=== PATIENT | female | born 1935 | race Caucasian/White ===

== ENCOUNTER 2016-05-13 14:11 | Emergency (ER) | payer MEDICARE, OTHER ==
[~2016-05-13] VITALS: Ht 157.5 cm; Wt 66.8 kg
[~2016-05-13 14:11] MED LIST: ARICEPT23 MG PO; DITROPAN 5MG TAB5 MG PO; FLONASE NASAL S16 GM NS; K-DUR 10 MEQ T10 MEQ PO; LASIX 40MG TABL40 MG PO; MOTRIN 600600 MG/TAB PO; NAMENDA XR 28MG PO; PERCOCET 325 MG1 TA2 PO; PREDNISONE20 MG PO; PRILOSEC 20MG20 MG PO; PROTONIX 40MG T40 MG PO; RT ADVAIR 228 DISKUS IH; RT SPIRIVA18 MCG IH; SYNTHROID0.112 MG/T PO; TESSALON P100 MG/CAP PO; ULTRAM 50MG TAB50 MG PO; ZITHROMAX Z PA250 MG PO
[2016-05-13 14:13] VITALS: TEMP 98.4
[2016-05-13 15:11] LABS: BASO # 0.1 (0.0-0.2); BASO % 0.7 % (0.0-2.0); EOS # 0.1 (0.0-0.7); EOS % 1.8 % (0-4.0); GRAN # 4.6 (1.4-6.5); GRAN % 64.1 % (42.2-75.2); LYMPH # 1.5 (1.2-3.4); MEAN CELL VOLUME 93 fl (80.0-100.0); MEAN CORPUSCULAR HGB CONC 31 g/dl (33.0-37.0); MEAN PLATELET VOLUME 9.6 fl (7.4-10.4); MONO # 0.9 (0.1-0.6); MONO % 12.1 % (1.7-9.3); PLATELET COUNT 205 K/mm3 (130-400); RED BLOOD COUNT 3.95 M/mm3 (4.10-5.30); REDCELL DISTRIBUTION WIDTH-CV 14.8 % (11.5-14.5); WHITE BLOOD COUNT 7.2 K/mm3 (4.8-10.8)
[2016-05-13 15:15] LABS: HEMATOCRIT 36.9 % (37.0-47.0); HEMOGLOBIN 11.6 g/dl (12.5-16.0); MEAN CORPUSCULAR HEMOGLOBIN 29 pg (27.0-31.0)
[2016-05-13 15:24] LABS: ADJUSTED CALCIUM 10.3 mg/dL (8.4-10.2); ALBUMIN 3.8 gm/dL (3.5-5.0); BILIRUBIN,TOTAL 0.8 mg/dL (0.0-1.0); CALCIUM 10.1 mg/dL (8.4-10.2); CREATININE, serum 1.42 mg/dL (0.52-1.25); TOTAL PROTEIN 6.9 gm/dL (6.4-8.2)
[2016-05-13] MEDS ORDERED: MEDROL 4MG DOSPA4 MG PO (16:09)
[2016-05-13] MEDS ORDERED: LEVAQUIN 750MG750 M1 PO (16:09)
[2016-05-13 17:04] VITALS: BP 145/78; PULSE 81
== END 2016-05-13 16:40 | disposition home or self-care (01) ==
LOC: COL.ER 14:11
PROVIDERS: Emergency Medicine
DX: J44.0 Chronic obstructive pulmonary disease with (acute) lower respiratory infection (principal); J20.9 Acute bronchitis, unspecified; J44.1 Chronic obstructive pulmonary disease with (acute) exacerbation; R60.0 Localized edema
CPT/HCPCS: J7512

== ENCOUNTER 2016-05-22 08:30 | Outpatient (RCR) | payer MEDICARE, OTHER ==
[~2016-05-22 08:30] MED LIST changes: -ALBUTEROL0.83 MG/ML IH; -AMOXICILLIN 8751 TAB PO; -ASPIRIN 81M81 MG/TA2 PO; -COLACE 100100 MG/CAP PO; -CORDARONE200 MG/TAB PO; -DOXYCYCLINE 10100 MG PO; -FOLIC ACID 11 MG/TA1 PO; -GOOD SENSE400 MG/5 M PO; -INCRUSE EL62.5 MCG/A IH; -IPRATROPIUM BROM3 M1 IH; -IRON TABLETS325 MG PO; -KLONOPIN 0.5MG0.5 MG PO; -KLOR-CON 1010 MEQ PO; -LASIX 20MG TABL20 MG PO; -LEVAQUIN 7750 MG/151 IV; -MAALOX ADVANCE148 ML PO; -MERREM IV1 GM IV; -MERREM VIA500 MG/VIA IV; -MYSOLINE 5050 MG/TAB PO; -NORCO 325 MG-51 TAB PO; -NORCO2.5 PO; -PACERONE400 MG PO; -PULMICORT R1 MG/2 ML IH; -PULMICORT R1 MG/2 ML PO; -PULMICORT0.5 MG/2 M IH; -SEROQUEL 2525 MG/TAB PO; -SINEMET 25/101 UDTAB PO; -SYNTHROID0.137 MG PO; -TYLENOL 325MG325 MG PO; -VANCOMYCIN HYD750 MG IV; -WELLBUTRIN 75MG75 MG PO; -XARELTO10 MG PO; -XOPENEX 1.1.25 MG/3 IH
[2016-05-30] MEDS ORDERED: COLACE 100100 MG/CAP PO (13:23)
[2016-05-30] MEDS ORDERED: INCRUSE EL62.5 MCG/A IH (15:04)
[2016-05-30] MEDS ORDERED: PREDNISONE20 MG PO (15:16)
[2016-05-30] MEDS ORDERED: DOXYCYCLINE 10100 MG PO (15:16)
[2016-06-01] MEDS ORDERED: COLACE 100100 MG/CAP PO (01:44)
[2016-06-01] MEDS ORDERED: ARICEPT23 MG PO (01:45)
[2016-06-01] MEDS ORDERED: KLOR-CON 1010 MEQ PO (01:49)
[2016-06-01] MEDS ORDERED: LASIX 40MG TABL40 MG PO (01:50)
[2016-06-10] MEDS ORDERED: XOPENEX 1.1.25 MG/3 IH (11:50)
[2016-06-10] MEDS ORDERED: PACERONE400 MG PO (11:50)
[2016-06-10] MEDS ORDERED: TYLENOL 325MG325 MG PO (11:51)
[2016-06-10] MEDS ORDERED: NORCO 325 MG-51 TAB PO (11:51)
[2016-06-10] MEDS ORDERED: KLONOPIN 0.5MG0.5 MG PO (11:52)
[2016-06-10] MEDS ORDERED: SEROQUEL 2525 MG/TAB PO (11:52)
[2016-06-10] MEDS ORDERED: GOOD SENSE400 MG/5 M PO (11:53)
[2016-06-10] MEDS ORDERED: PREDNISONE20 MG PO (11:54)
[2016-06-10] MEDS ORDERED: XARELTO10 MG PO (12:36)
[2016-06-20] MEDS ORDERED: IPRATROPIUM BROM3 M1 IH ×2 (12:07)
[2016-06-20] MEDS ORDERED: CORDARONE200 MG/TAB PO (12:07)
[2016-06-20] MEDS ORDERED: MERREM IV1 GM IV (13:13)
[2016-06-20] MEDS ORDERED: VANCOMYCIN HYD750 MG IV (13:14)
[2016-06-20] MEDS ORDERED: LEVAQUIN 750MG750 M1 PO (13:15)
[2016-06-20] MEDS ORDERED: XARELTO10 MG PO (13:33)
[2016-06-29] MEDS ORDERED: XOPENEX 1.1.25 MG/3 IH (00:18)
[2016-06-29] MEDS ORDERED: NORCO 325 MG-51 TAB PO (00:21)
[2016-06-29] MEDS ORDERED: TYLENOL 325MG325 MG PO (00:23)
[2016-06-29] MEDS ORDERED: PULMICORT R1 MG/2 ML IH (00:25)
[2016-06-30] MEDS ORDERED: AMOXICILLIN 8751 TAB PO (12:17)
[2016-06-30] MEDS ORDERED: MERREM VIA500 MG/VIA IV (12:19)
[2016-06-30] MEDS ORDERED: LEVAQUIN 7750 MG/151 IV (12:21)
[2016-08-17] MEDS ORDERED: PULMICORT R1 MG/2 ML PO (11:03)
[2016-08-17] MEDS ORDERED: WELLBUTRIN 75MG75 MG PO (11:04)
[2016-08-17] MEDS ORDERED: LASIX 20MG TABL20 MG PO (11:04)
[2016-08-17] MEDS ORDERED: SEROQUEL 2525 MG/TAB PO (11:10)
[2016-08-17] MEDS ORDERED: PULMICORT R1 MG/2 ML IH (12:17)
== END 2016-08-19 | disposition home or self-care (01) ==
LOC: WSST
DX: R13.10 Dysphagia, unspecified (principal); G30.9 Alzheimer's disease, unspecified; F02.80 Dementia in other diseases classified elsewhere, unspecified severity, without behavioral disturbance, psychotic disturbance, mood disturbance, and anxiety
CPT/HCPCS: G8996-GN; G8997-GN; G8998-GN

== ENCOUNTER → 2016-05-22 | Outpatient (CLI) | payer MEDICARE, OTHER ==
[~2016-05-22] MED LIST changes: +ALBUTEROL0.83 MG/ML IH; +AMOXICILLIN 8751 TAB PO; +ASPIRIN 81M81 MG/TA2 PO; +COLACE 100100 MG/CAP PO; +CORDARONE200 MG/TAB PO; +DOXYCYCLINE 10100 MG PO; +FOLIC ACID 11 MG/TA1 PO; +GOOD SENSE400 MG/5 M PO; +INCRUSE EL62.5 MCG/A IH; +IPRATROPIUM BROM3 M1 IH; +IRON TABLETS325 MG PO; +KLONOPIN 0.5MG0.5 MG PO; +KLOR-CON 1010 MEQ PO; +LASIX 20MG TABL20 MG PO; +LEVAQUIN 750MG750 M1 PO; +LEVAQUIN 7750 MG/151 IV; +MAALOX ADVANCE148 ML PO; +MEDROL 4MG DOSPA4 MG PO; +MERREM IV1 GM IV; +MERREM VIA500 MG/VIA IV; +MYSOLINE 5050 MG/TAB PO; +NORCO 325 MG-51 TAB PO; +NORCO2.5 PO; +PACERONE400 MG PO; +PULMICORT R1 MG/2 ML IH; +PULMICORT R1 MG/2 ML PO; +PULMICORT0.5 MG/2 M IH; +SEROQUEL 2525 MG/TAB PO; +SINEMET 25/101 UDTAB PO; +SYNTHROID0.137 MG PO; +TYLENOL 325MG325 MG PO; +VANCOMYCIN HYD750 MG IV; +WELLBUTRIN 75MG75 MG PO; +XARELTO10 MG PO; +XOPENEX 1.1.25 MG/3 IH
== END ==
LOC: COL.RAD 08:08
DX: R13.19 Other dysphagia (principal); G30.8 Other Alzheimer's disease; F02.80 Dementia in other diseases classified elsewhere, unspecified severity, without behavioral disturbance, psychotic disturbance, mood disturbance, and anxiety
CPT/HCPCS: G8996-GN; G8997-GN; G8998-GN

== ENCOUNTER → 2016-05-29 | Outpatient (CLI) | payer MEDICARE, OTHER ==
[~2016-05-29] MED LIST changes: +ALBUTEROL0.83 MG/ML IH; +AMOXICILLIN 8751 TAB PO; +ASPIRIN 81M81 MG/TA2 PO; +COLACE 100100 MG/CAP PO; +CORDARONE200 MG/TAB PO; +DOXYCYCLINE 10100 MG PO; +FOLIC ACID 11 MG/TA1 PO; +GOOD SENSE400 MG/5 M PO; +INCRUSE EL62.5 MCG/A IH; +IPRATROPIUM BROM3 M1 IH; +IRON TABLETS325 MG PO; +KLONOPIN 0.5MG0.5 MG PO; +KLOR-CON 1010 MEQ PO; +LASIX 20MG TABL20 MG PO; +LEVAQUIN 7750 MG/151 IV; +MAALOX ADVANCE148 ML PO; +MERREM IV1 GM IV; +MERREM VIA500 MG/VIA IV; +MYSOLINE 5050 MG/TAB PO; +NORCO 325 MG-51 TAB PO; +NORCO2.5 PO; +PACERONE400 MG PO; +PULMICORT R1 MG/2 ML IH; +PULMICORT R1 MG/2 ML PO; +PULMICORT0.5 MG/2 M IH; +SEROQUEL 2525 MG/TAB PO; +SINEMET 25/101 UDTAB PO; +SYNTHROID0.137 MG PO; +TYLENOL 325MG325 MG PO; +VANCOMYCIN HYD750 MG IV; +WELLBUTRIN 75MG75 MG PO; +XARELTO10 MG PO; +XOPENEX 1.1.25 MG/3 IH
== END ==
LOC: COL.RAD 07:43
DX: N17.9 Acute kidney failure, unspecified (principal)

== ENCOUNTER 2016-05-30 12:25 | Emergency (ER) | payer MEDICARE, OTHER ==
[~2016-05-30] VITALS: Ht 157.5 cm; Wt 63.2 kg
[~2016-05-30 12:25] MED LIST changes: -ALBUTEROL0.83 MG/ML IH; -AMOXICILLIN 8751 TAB PO; -ASPIRIN 81M81 MG/TA2 PO; -COLACE 100100 MG/CAP PO; -CORDARONE200 MG/TAB PO; -DOXYCYCLINE 10100 MG PO; -FOLIC ACID 11 MG/TA1 PO; -GOOD SENSE400 MG/5 M PO; -INCRUSE EL62.5 MCG/A IH; -IPRATROPIUM BROM3 M1 IH; -IRON TABLETS325 MG PO; -KLONOPIN 0.5MG0.5 MG PO; -KLOR-CON 1010 MEQ PO; -LASIX 20MG TABL20 MG PO; -LEVAQUIN 7750 MG/151 IV; -MAALOX ADVANCE148 ML PO; -MERREM IV1 GM IV; -MERREM VIA500 MG/VIA IV; -MYSOLINE 5050 MG/TAB PO; -NORCO 325 MG-51 TAB PO; -NORCO2.5 PO; -PACERONE400 MG PO; -PULMICORT R1 MG/2 ML IH; -PULMICORT R1 MG/2 ML PO; -PULMICORT0.5 MG/2 M IH; -SEROQUEL 2525 MG/TAB PO; -SINEMET 25/101 UDTAB PO; -SYNTHROID0.137 MG PO; -TYLENOL 325MG325 MG PO; -VANCOMYCIN HYD750 MG IV; -WELLBUTRIN 75MG75 MG PO; -XARELTO10 MG PO; -XOPENEX 1.1.25 MG/3 IH
[2016-05-30] MEDS ORDERED: COLACE 100100 MG/CAP PO (13:23)
[2016-05-30 13:34] LABS: BASO % 0.4 % (0.0-2.0); EOS # 0.1 (0.0-0.7); EOS % 0.9 % (0-4.0); GRAN # 6.9 (1.4-6.5); GRAN % 71.9 % (42.2-75.2); HEMATOCRIT 40.8 % (37.0-47.0); HEMOGLOBIN 12.6 g/dl (12.5-16.0); LYMPH # 1.5 (1.2-3.4); LYMPH % 15.6 % (20.0-51.0); MEAN CELL VOLUME 93 fl (80.0-100.0); MEAN CORPUSCULAR HEMOGLOBIN 29 pg (27.0-31.0); MEAN CORPUSCULAR HGB CONC 31 g/dl (33.0-37.0); MEAN PLATELET VOLUME 9.5 fl (7.4-10.4); MONO % 10.6 % (1.7-9.3); PLATELET COUNT 229 K/mm3 (130-400); RED BLOOD COUNT 4.37 M/mm3 (4.10-5.30); REDCELL DISTRIBUTION WIDTH-CV 14.7 % (11.5-14.5); WHITE BLOOD COUNT 9.6 K/mm3 (4.8-10.8)
[2016-05-30 13:46] LABS: HYALINE CAST >12 /lpf; PH 6 (5-8); SQUAMOUS EPITHELIAL 0-2 /hpf; URINE APPEARANCE Clear; URINE BACTERIA None Seen /hpf; URINE BILIRUBIN Negative (NEGATIVE); URINE BLOOD Negative (NEGATIVE); URINE COLOR Yellow; URINE GLUCOSE Negative (NEGATIVE); URINE KETONE Negative (NEGATIVE); URINE RBC 0-2 /hpf; URINE UROBILINOGEN Negative (NEGATIVE); URINE WBC 0-2 /hpf
[2016-05-30 14:13] LABS: ADJUSTED CALCIUM 10.3 mg/dL (8.4-10.2); ALBUMIN 3.6 gm/dL (3.5-5.0); BILIRUBIN,TOTAL 0.7 mg/dL (0.0-1.0); CREATININE, serum 1.47 mg/dL (0.52-1.25); POTASSIUM 3.9 mmol/L (3.4-5.0); TOTAL PROTEIN 6.8 gm/dL (6.4-8.2)
[2016-05-30 14:24] LABS: TROPONIN-I 0.013 ng/mL (0.000-0.034)
[2016-05-30] MEDS ORDERED: INCRUSE EL62.5 MCG/A IH (15:04)
[2016-05-30] MEDS ORDERED: PREDNISONE20 MG PO (15:16)
[2016-05-30] MEDS ORDERED: DOXYCYCLINE 10100 MG PO (15:16)
[2016-05-30 15:50] VITALS: BP 107/61; PULSE 78; TEMP 98.2
== END 2016-05-30 15:50 ==
LOC: COL.ER 12:25
PROVIDERS: Emergency Medicine
DX: J44.0 Chronic obstructive pulmonary disease with (acute) lower respiratory infection (principal); J20.9 Acute bronchitis, unspecified; J44.1 Chronic obstructive pulmonary disease with (acute) exacerbation; I50.9 Heart failure, unspecified; F03.90 Unspecified dementia, unspecified severity, without behavioral disturbance, psychotic disturbance, mood disturbance, and anxiety; Z99.81 Dependence on supplemental oxygen
CPT/HCPCS: J7030; J7512

== ENCOUNTER 2016-06-01 01:26 | Inpatient (IN) | payer MEDICARE, OTHER ==
[~2016-06-01] VITALS: Ht 157.5 cm; Wt 71.0 kg
[~2016-06-01 01:26] MED LIST changes: +COLACE 100100 MG/CAP PO; +DOXYCYCLINE 10100 MG PO; +INCRUSE EL62.5 MCG/A IH
[2016-06-01] MEDS ORDERED: COLACE 100100 MG/CAP PO (01:44)
[2016-06-01] MEDS ORDERED: ARICEPT23 MG PO (01:45)
[2016-06-01] MEDS ORDERED: KLOR-CON 1010 MEQ PO (01:49)
[2016-06-01] MEDS ORDERED: LASIX 40MG TABL40 MG PO (01:50)
[2016-06-01 02:42] LABS: BASO % 0.1 % (0.0-2.0); GRAN # 10.4 (1.4-6.5); GRAN % 86.8 % (42.2-75.2); LYMPH # 0.8 (1.2-3.4); LYMPH % 6.3 % (20.0-51.0); MEAN CELL VOLUME 92 fl (80.0-100.0); MEAN CORPUSCULAR HGB CONC 32 g/dl (33.0-37.0); MEAN PLATELET VOLUME 9.8 fl (7.4-10.4); MONO # 0.7 (0.1-0.6); PLATELET COUNT 234 K/mm3 (130-400); REDCELL DISTRIBUTION WIDTH-CV 14.6 % (11.5-14.5); WHITE BLOOD COUNT 11.9 K/mm3 (4.8-10.8)
[2016-06-01 02:45] LABS: HEMATOCRIT 34.9 % (37.0-47.0); HEMOGLOBIN 11.1 g/dl (12.5-16.0); MEAN CORPUSCULAR HEMOGLOBIN 29 pg (27.0-31.0)
[2016-06-01 02:50] LABS: ADJUSTED CALCIUM 10.3 mg/dL (8.4-10.2); ALBUMIN 3.3 gm/dL (3.5-5.0); BILIRUBIN,TOTAL 0.6 mg/dL (0.0-1.0); CALCIUM 9.7 mg/dL (8.4-10.2); CREATININE, serum 1.31 mg/dL (0.52-1.25); POTASSIUM 4.1 mmol/L (3.4-5.0); TOTAL PROTEIN 6.1 gm/dL (6.4-8.2)
[2016-06-01 02:51] LABS: INR 1.1 (0.8-3.0); PROTHROMBIN TIME 11.7 SECONDS (9.7-12.8)
[2016-06-01 02:54] LABS: PARTIAL THROMBOPLASTIN TIME 27.2 SECONDS (26.0-37.0)
[2016-06-01 02:56] LABS: PH 6 (5-8); SQUAMOUS EPITHELIAL None Seen /hpf; URINE APPEARANCE Clear; URINE BACTERIA None Seen /hpf; URINE BILIRUBIN Negative (NEGATIVE); URINE BLOOD Negative (NEGATIVE); URINE COLOR Straw; URINE GLUCOSE Negative (NEGATIVE); URINE KETONE Negative (NEGATIVE); URINE RBC None Seen /hpf; URINE UROBILINOGEN Negative (NEGATIVE); URINE WBC None Seen /hpf
[2016-06-01 04:49] VITALS: BP 102/62; PULSE 77; TEMP 97.6
[2016-06-01 10:14] VITALS: BP 94/50; PULSE 72; TEMP 97.6
[2016-06-01 13:39] VITALS: BP 104/57; PULSE 85; TEMP 98.1
[2016-06-01 14:09] LABS: ALLEN TEST YES; ALLENS TEST RESULT PASS; ARTERIAL BLD GAS O2 SATURATION 91.5 % (92-100); ARTERIAL BLD GAS TCO2 CT 33.8; ARTERIAL BLOOD GAS BASE EXCESS 5.1 (-2-2); ARTERIAL BLOOD GAS PHT 7.35 C (7.35-7.45); ARTERIAL BLOOD GAS PO2 65.1 mmHg (80-100); ARTERIAL BLOOD GAS PO2T 65.1 (80-100); ARTERIAL BLOOD GAS pH 7.35 (7.35-7.45); ATS? YES; OXYHEMOGLOBIN 90.8 %
[2016-06-01 18:23] VITALS: BP 115/55; PULSE 97; TEMP 98.6
[2016-06-01 21:26] VITALS: BP 113/69; PULSE 78; TEMP 97.8
[2016-06-02] VITALS (388 sets, daily range): BP systolic 95–119; BP diastolic 52–63; PULSE 68–140; TEMP 97.8–99; O2SAT 84–100
[2016-06-02 17:37] LABS: TROPONIN-I 0.03 ng/mL (0.000-0.034)
[2016-06-02 17:56] LABS: THYROID STIMULATING HORMONE 2.5 uIU/mL (0.465-4.680)
[2016-06-03] VITALS (1396 sets, daily range): BP systolic 83–139; BP diastolic 52–80; PULSE 94–111; TEMP 97.8–99.3; O2SAT 77–100
[2016-06-03 04:32] LABS: ARTERIAL BLD GAS O2 SATURATION 97.8 % (92-100); ARTERIAL BLD GAS TCO2 CT 27.8; ARTERIAL BLOOD GAS BASE EXCESS 2.3 (-2-2); ARTERIAL BLOOD GAS HCO3 26.5 meq/L (22-26); ARTERIAL BLOOD GAS PHT 7.44 C (7.35-7.45); ARTERIAL BLOOD GAS PO2 110.9 mmHg (80-100); ARTERIAL BLOOD GAS PO2T 110.9 (80-100); ARTERIAL BLOOD GAS pH 7.44 (7.35-7.45); OXYHEMOGLOBIN 96.7 %
[2016-06-03 04:33] LABS: ALLEN TEST YES; ALLENS TEST RESULT PASS; ATS? YES
[2016-06-03 06:11] LABS: MEAN CELL VOLUME 95 fl (80.0-100.0); MEAN CORPUSCULAR HGB CONC 31 g/dl (33.0-37.0); PLATELET COUNT 138 K/mm3 (130-400); RED BLOOD COUNT 2.82 M/mm3 (4.10-5.30); REDCELL DISTRIBUTION WIDTH-CV 14.6 % (11.5-14.5)
[2016-06-03 06:17] LABS: ADD PATHOLOGY DIFF REVIEW NO; HEMATOCRIT 26.8 % (37.0-47.0); HEMOGLOBIN 8.3 g/dl (12.5-16.0); MEAN CORPUSCULAR HEMOGLOBIN 29 pg (27.0-31.0)
[2016-06-03 06:27] LABS: CALCIUM 8.2 mg/dL (8.4-10.2); CREATININE, serum 1.26 mg/dL (0.52-1.25); POTASSIUM 3.3 mmol/L (3.4-5.0)
[2016-06-03 06:34] LABS: BAND 58 % (0-10); NEUTROPHILS 21 % (42.0-75.2); TOTAL CELLS COUNTED 100
[2016-06-03 17:11] LABS: MAGNESIUM 1.8 mg/dL (1.6-2.3); PHOSPHOROUS 3.3 mg/dL (2.5-4.5)
[2016-06-04] VITALS (998 sets, daily range): BP systolic 82–126; BP diastolic 53–74; PULSE 72–93; TEMP 97–98.8; O2SAT 76–100
[2016-06-04 05:49] LABS: MEAN CELL VOLUME 95 fl (80.0-100.0); MEAN CORPUSCULAR HGB CONC 31 g/dl (33.0-37.0); MEAN PLATELET VOLUME 10.5 fl (7.4-10.4); PLATELET COUNT 133 K/mm3 (130-400); RED BLOOD COUNT 2.84 M/mm3 (4.10-5.30); REDCELL DISTRIBUTION WIDTH-CV 14.5 % (11.5-14.5); WHITE BLOOD COUNT 5.3 K/mm3 (4.8-10.8)
[2016-06-04 05:53] LABS: HEMATOCRIT 27.1 % (37.0-47.0); HEMOGLOBIN 8.3 g/dl (12.5-16.0); MEAN CORPUSCULAR HEMOGLOBIN 29 pg (27.0-31.0)
[2016-06-04 05:54] LABS: ADD PATHOLOGY DIFF REVIEW NO
[2016-06-04 05:59] LABS: ALBUMIN 2.5 gm/dL (3.5-5.0); BILIRUBIN,TOTAL 0.4 mg/dL (0.0-1.0); CALCIUM 8.8 mg/dL (8.4-10.2); CREATININE, serum 1.16 mg/dL (0.52-1.25); MAGNESIUM 1.9 mg/dL (1.6-2.3); PHOSPHOROUS 3.4 mg/dL (2.5-4.5); POTASSIUM 4.1 mmol/L (3.4-5.0); TOTAL PROTEIN 5.1 gm/dL (6.4-8.2)
[2016-06-04 06:19] LABS: BAND 26 % (0-10); NEUTROPHILS 64 % (42.0-75.2); PLATELET ESTIMATE NORMAL (NORMAL); TOTAL CELLS COUNTED 100
[2016-06-05] VITALS (454 sets, daily range): BP systolic 104–129; BP diastolic 61–80; PULSE 67–85; TEMP 98–99.1; O2SAT 90–100
[2016-06-05 06:52] LABS: CALCIUM 9.3 mg/dL (8.4-10.2); CREATININE, serum 1.03 mg/dL (0.52-1.25); MAGNESIUM 2.4 mg/dL (1.6-2.3); PHOSPHOROUS 3.6 mg/dL (2.5-4.5); POTASSIUM 3.9 mmol/L (3.4-5.0)
[2016-06-06] VITALS (804 sets, daily range): BP systolic 88–132; BP diastolic 57–94; PULSE 80–99; TEMP 97–98.2; O2SAT 79–100
[2016-06-06 04:46] LABS: ARTERIAL BLD GAS O2 SATURATION 97.7 % (92-100); ARTERIAL BLD GAS TCO2 CT 28.5; ARTERIAL BLOOD GAS BASE EXCESS 1.4 (-2-2); ARTERIAL BLOOD GAS HCO3 27.1 meq/L (22-26); ARTERIAL BLOOD GAS PHT 7.37 C (7.35-7.45); ARTERIAL BLOOD GAS PO2 116.5 mmHg (80-100); ARTERIAL BLOOD GAS PO2T 116.5 (80-100); ARTERIAL BLOOD GAS pH 7.37 (7.35-7.45); OXYHEMOGLOBIN 97.1 %
[2016-06-06 04:47] LABS: ALLEN TEST NO; ATS? YES
[2016-06-06 07:37] LABS: CALCIUM 9.4 mg/dL (8.4-10.2); CREATININE, serum 1.03 mg/dL (0.52-1.25); MAGNESIUM 2.2 mg/dL (1.6-2.3); MEAN CELL VOLUME 91 fl (80.0-100.0); MEAN CORPUSCULAR HGB CONC 32 g/dl (33.0-37.0); PHOSPHOROUS 3.3 mg/dL (2.5-4.5); PLATELET COUNT 212 K/mm3 (130-400); POTASSIUM 3.8 mmol/L (3.4-5.0); RED BLOOD COUNT 3.13 M/mm3 (4.10-5.30); REDCELL DISTRIBUTION WIDTH-CV 14.3 % (11.5-14.5); WHITE BLOOD COUNT 9.9 K/mm3 (4.8-10.8)
[2016-06-06 07:40] LABS: HEMATOCRIT 28.5 % (37.0-47.0); HEMOGLOBIN 9.2 g/dl (12.5-16.0); MEAN CORPUSCULAR HEMOGLOBIN 29 pg (27.0-31.0)
[2016-06-06 07:41] LABS: ADD PATHOLOGY DIFF REVIEW NO
[2016-06-06 08:05] LABS: BAND 7 % (0-10); NEUTROPHILS 87 % (42.0-75.2); PLATELET ESTIMATE NORMAL (NORMAL); TOTAL CELLS COUNTED 100
[2016-06-07] VITALS (440 sets, daily range): BP systolic 85–129; BP diastolic 58–82; PULSE 90–93; TEMP 97–98.6; O2SAT 84–100
[2016-06-07 05:56] LABS: MEAN CELL VOLUME 92 fl (80.0-100.0); MEAN CORPUSCULAR HGB CONC 32 g/dl (33.0-37.0); MEAN PLATELET VOLUME 10.4 fl (7.4-10.4); PLATELET COUNT 183 K/mm3 (130-400); RED BLOOD COUNT 2.58 M/mm3 (4.10-5.30); REDCELL DISTRIBUTION WIDTH-CV 14.5 % (11.5-14.5); WHITE BLOOD COUNT 11.2 K/mm3 (4.8-10.8)
[2016-06-07 06:02] LABS: ADD PATHOLOGY DIFF REVIEW NO; HEMATOCRIT 23.6 % (37.0-47.0); HEMOGLOBIN 7.5 g/dl (12.5-16.0); MEAN CORPUSCULAR HEMOGLOBIN 29 pg (27.0-31.0)
[2016-06-07 06:08] LABS: CALCIUM 9.2 mg/dL (8.4-10.2); CREATININE, serum 1.11 mg/dL (0.52-1.25); PHOSPHOROUS 2.9 mg/dL (2.5-4.5); POTASSIUM 3.7 mmol/L (3.4-5.0)
[2016-06-07 06:24] LABS: BAND 18 % (0-10); METAMYELOCYTE 3 % (0-0); NEUTROPHILS 72 % (42.0-75.2); TOTAL CELLS COUNTED 100
[2016-06-08] VITALS (14 sets, daily range): BP systolic 96–142; BP diastolic 51–91; PULSE 66–105; TEMP 97.4–98.5
[2016-06-08 06:15] LABS: MEAN CELL VOLUME 93 fl (80.0-100.0); MEAN CORPUSCULAR HGB CONC 31 g/dl (33.0-37.0); MEAN PLATELET VOLUME 10.7 fl (7.4-10.4); PLATELET COUNT 173 K/mm3 (130-400); RED BLOOD COUNT 2.23 M/mm3 (4.10-5.30); REDCELL DISTRIBUTION WIDTH-CV 14.8 % (11.5-14.5); WHITE BLOOD COUNT 10.8 K/mm3 (4.8-10.8)
[2016-06-08 06:26] LABS: CALCIUM 9.2 mg/dL (8.4-10.2); CREATININE, serum 1.27 mg/dL (0.52-1.25); MAGNESIUM 2.1 mg/dL (1.6-2.3); PHOSPHOROUS 3.8 mg/dL (2.5-4.5); POTASSIUM 4.1 mmol/L (3.4-5.0)
[2016-06-08 06:27] LABS: HEMATOCRIT 20.7 % (37.0-47.0); HEMOGLOBIN 6.5 g/dl (12.5-16.0); MEAN CORPUSCULAR HEMOGLOBIN 29 pg (27.0-31.0)
[2016-06-08 06:28] LABS: ADD PATHOLOGY DIFF REVIEW NO
[2016-06-08 07:03] LABS: BAND 17 % (0-10); BASOPHIL 1 % (0-2); MYELOCYTE 4 % (0-0); NEUTROPHILS 73 % (42.0-75.2); TOTAL CELLS COUNTED 100
[2016-06-08 10:40] LABS: ARTERIAL BLD GAS O2 SATURATION 97.8 % (92-100); ARTERIAL BLD GAS TCO2 CT 31.4; ARTERIAL BLOOD GAS BASE EXCESS 4.9 (-2-2); ARTERIAL BLOOD GAS HCO3 29.9 meq/L (22-26); ARTERIAL BLOOD GAS PHT 7.41 C (7.35-7.45); ARTERIAL BLOOD GAS PO2 117.8 mmHg (80-100); ARTERIAL BLOOD GAS PO2T 117.8 (80-100); ARTERIAL BLOOD GAS pH 7.41 (7.35-7.45); ATS? YES; OXYHEMOGLOBIN 96.3 %
[2016-06-09 01:30] VITALS: BP 119/70; PULSE 77; TEMP 97.9
[2016-06-09 06:03] VITALS: BP 133/49; PULSE 82; TEMP 98.3
[2016-06-09 07:53] LABS: HEMATOCRIT 28.5 % (37.0-47.0); HEMOGLOBIN 9.1 g/dl (12.5-16.0)
[2016-06-09 08:30] LABS: CALCIUM 9.2 mg/dL (8.4-10.2); CREATININE, serum 1.34 mg/dL (0.52-1.25); POTASSIUM 4.5 mmol/L (3.4-5.0)
[2016-06-09 10:00] VITALS: BP 104/62; PULSE 84; TEMP 98.2
[2016-06-09 20:57] VITALS: BP 111/42; PULSE 82; TEMP 98
[2016-06-10 01:31] VITALS: BP 120/60; PULSE 77; TEMP 99
[2016-06-10 05:07] VITALS: BP 119/46; PULSE 66; TEMP 97.6
[2016-06-10 08:43] LABS: ARTERIAL BLD GAS O2 SATURATION 95.3 % (92-100); ARTERIAL BLD GAS TCO2 CT 26.8; ARTERIAL BLOOD GAS BASE EXCESS -0.1 (-2-2); ARTERIAL BLOOD GAS HCO3 25.4 meq/L (22-26); ARTERIAL BLOOD GAS PHT 7.36 C (7.35-7.45); ARTERIAL BLOOD GAS PO2 81.6 mmHg (80-100); ARTERIAL BLOOD GAS PO2T 81.6 (80-100); ARTERIAL BLOOD GAS pH 7.36 (7.35-7.45); OXYHEMOGLOBIN 94.2 %
[2016-06-10 10:16] VITALS: BP 140/107; PULSE 91; TEMP 97
[2016-06-10 10:26] LABS: CALCIUM 9.2 mg/dL (8.4-10.2); CREATININE, serum 1.08 mg/dL (0.52-1.25)
[2016-06-10] MEDS ORDERED: XOPENEX 1.1.25 MG/3 IH (11:50)
[2016-06-10] MEDS ORDERED: PACERONE400 MG PO (11:50)
[2016-06-10] MEDS ORDERED: TYLENOL 325MG325 MG PO (11:51)
[2016-06-10] MEDS ORDERED: NORCO 325 MG-51 TAB PO (11:51)
[2016-06-10] MEDS ORDERED: KLONOPIN 0.5MG0.5 MG PO (11:52)
[2016-06-10] MEDS ORDERED: SEROQUEL 2525 MG/TAB PO (11:52)
[2016-06-10] MEDS ORDERED: GOOD SENSE400 MG/5 M PO (11:53)
[2016-06-10] MEDS ORDERED: PREDNISONE20 MG PO (11:54)
[2016-06-10 11:57] LABS: ATS? YES
[2016-06-10] MEDS ORDERED: XARELTO10 MG PO (12:36)
[2016-06-10 13:28] VITALS: BP 140/107; PULSE 91; TEMP 97
[2016-06-10 14:17] VITALS: BP 120/64; PULSE 72; TEMP 98.1
== END 2016-06-10 15:45 | DRG 480 ==
LOC: COL.ER 01:26 → SURG 02:22 → ICU 02:22 → SURG 06-07 15:35
PROVIDERS: Emergency Medicine; Family Medicine; Internal Medicine; Internal Medicine Pulmonary Disease; Orthopaedic Surgery
PROC: 0QS706Z Reposition Left Upper Femur with Intramedullary Internal Fixation Device, Open Approach (ICD-10-PCS; principal; 2016-06-06 13:00)
DX: S72.22XA Displaced subtrochanteric fracture of left femur, initial encounter for closed fracture (principal); J18.9 Pneumonia, unspecified organism; J96.22 Acute and chronic respiratory failure with hypercapnia; J44.0 Chronic obstructive pulmonary disease with (acute) lower respiratory infection; Z66 Do not resuscitate; E44.1 Mild protein-calorie malnutrition; I50.32 Chronic diastolic (congestive) heart failure; D62 Acute posthemorrhagic anemia; F05 Delirium due to known physiological condition; N17.9 Acute kidney failure, unspecified; W18.30XA Fall on same level, unspecified, initial encounter; N18.9 Chronic kidney disease, unspecified; F03.90 Unspecified dementia, unspecified severity, without behavioral disturbance, psychotic disturbance, mood disturbance, and anxiety; E87.6 Hypokalemia; I48.91 Unspecified atrial fibrillation
CPT/HCPCS: 99222-AI; 99232-AI; 99233-AI; 99239; A6197; A6212; A9284; B4178; C1713; C1751; C1894; J0153; J0282; J0456; J0610; J0696; J1170; J1630; J1644; J1650; J1720; J1815; J1940; J2060; J2250; J2270; J2370; J2405; J2704; J2920; J3475; J3480; J7030; J7050; J7060; J7131; J7512; P9016

== ENCOUNTER → 2016-06-12 | Outpatient (REF) ==
[~2016-06-12] MED LIST changes: +ALBUTEROL0.83 MG/ML IH; +AMOXICILLIN 8751 TAB PO; +ASPIRIN 81M81 MG/TA2 PO; +CORDARONE200 MG/TAB PO; +FOLIC ACID 11 MG/TA1 PO; +GOOD SENSE400 MG/5 M PO; +IPRATROPIUM BROM3 M1 IH; +IRON TABLETS325 MG PO; +KLONOPIN 0.5MG0.5 MG PO; +KLOR-CON 1010 MEQ PO; +LASIX 20MG TABL20 MG PO; +LEVAQUIN 7750 MG/151 IV; +MAALOX ADVANCE148 ML PO; +MERREM IV1 GM IV; +MERREM VIA500 MG/VIA IV; +MYSOLINE 5050 MG/TAB PO; +NORCO 325 MG-51 TAB PO; +NORCO2.5 PO; +PACERONE400 MG PO; +PULMICORT R1 MG/2 ML IH; +PULMICORT R1 MG/2 ML PO; +PULMICORT0.5 MG/2 M IH; +SEROQUEL 2525 MG/TAB PO; +SINEMET 25/101 UDTAB PO; +SYNTHROID0.137 MG PO; +TYLENOL 325MG325 MG PO; +VANCOMYCIN HYD750 MG IV; +WELLBUTRIN 75MG75 MG PO; +XARELTO10 MG PO; +XOPENEX 1.1.25 MG/3 IH
[2016-06-12 09:39] LABS: CALCIUM 9.4 mg/dL (8.4-10.2); CREATININE, serum 1.03 mg/dL (0.52-1.25); POTASSIUM 4.6 mmol/L (3.4-5.0)
== END ==
LOC: ZLAB.STJ 09:10
PROVIDERS: Family Medicine
DX: Z01.89 Encounter for other specified special examinations (principal)

== ENCOUNTER 2016-06-16 15:36 | Inpatient (IN) | payer MEDICARE, OTHER ==
[2016-06-16] VITALS (197 sets, daily range): BP systolic 108–109; BP diastolic 87; PULSE 80; TEMP 97; O2SAT 63–100
[~2016-06-16] VITALS: Ht 154.9 cm; Wt 75.3 kg
[~2016-06-16 15:36] MED LIST changes: -ALBUTEROL0.83 MG/ML IH; -AMOXICILLIN 8751 TAB PO; -ASPIRIN 81M81 MG/TA2 PO; -CORDARONE200 MG/TAB PO; -FOLIC ACID 11 MG/TA1 PO; -IPRATROPIUM BROM3 M1 IH; -IRON TABLETS325 MG PO; -LASIX 20MG TABL20 MG PO; -LEVAQUIN 7750 MG/151 IV; -MAALOX ADVANCE148 ML PO; -MERREM IV1 GM IV; -MERREM VIA500 MG/VIA IV; -MYSOLINE 5050 MG/TAB PO; -NORCO2.5 PO; -PULMICORT R1 MG/2 ML IH; -PULMICORT R1 MG/2 ML PO; -PULMICORT0.5 MG/2 M IH; -SINEMET 25/101 UDTAB PO; -SYNTHROID0.137 MG PO; -VANCOMYCIN HYD750 MG IV; -WELLBUTRIN 75MG75 MG PO
[2016-06-16 17:18] LABS: HEMATOCRIT 39.5 % (37.0-47.0); MEAN CELL VOLUME 99 fl (80.0-100.0); MEAN CORPUSCULAR HEMOGLOBIN 30 pg (27.0-31.0); MEAN CORPUSCULAR HGB CONC 30 g/dl (33.0-37.0); PLATELET COUNT 298 K/mm3 (130-400); REDCELL DISTRIBUTION WIDTH-CV 15.3 % (11.5-14.5); WHITE BLOOD COUNT 15.4 K/mm3 (4.8-10.8)
[2016-06-16 17:18] LABS: VENOUS BLOOD GAS BE 7.2 (-4-4); VENOUS BLOOD GAS SAO2 70.7 % (60-80)
[2016-06-16 17:19] LABS: VENOUS BLOOD GAS SITE VENIPUNCTURE
[2016-06-16 17:23] LABS: ADD PATHOLOGY DIFF REVIEW NO; HEMOGLOBIN 11.8 g/dl (12.5-16.0)
[2016-06-16 17:30] LABS: BAND 11 % (0-10); MYELOCYTE 4 % (0-0); NEUTROPHILS 76 % (42.0-75.2); PLATELET ESTIMATE NORMAL (NORMAL); TOTAL CELLS COUNTED 100
[2016-06-16 17:36] LABS: INFLUENZA B NEGATIVE
[2016-06-16 17:52] LABS: CALCIUM 9.6 mg/dL (8.4-10.2); CREATININE, serum 0.98 mg/dL (0.52-1.25); POTASSIUM 4.5 mmol/L (3.4-5.0)
[2016-06-16 18:03] LABS: TROPONIN-I 0.016 ng/mL (0.000-0.034)
[2016-06-16 21:22] LABS: VENOUS BLOOD GAS SAO2 57.7 % (60-80)
[2016-06-16 21:24] LABS: VENOUS BLOOD GAS SITE CENTRAL LINE
[2016-06-16 22:35] LABS: ARTERIAL BLD GAS O2 SATURATION 95.8 % (92-100); ARTERIAL BLD GAS TCO2 CT 31.5; ARTERIAL BLOOD GAS BASE EXCESS 2.7 (-2-2); ARTERIAL BLOOD GAS HCO3 29.7 meq/L (22-26); ARTERIAL BLOOD GAS PHT 7.33 C (7.35-7.45); ARTERIAL BLOOD GAS PO2 79.6 mmHg (80-100); ARTERIAL BLOOD GAS PO2T 79.6 (80-100); ARTERIAL BLOOD GAS pH 7.33 (7.35-7.45); OXYHEMOGLOBIN 94.8 %
[2016-06-16 22:36] LABS: ALLEN TEST NO; ATS? YES
[2016-06-16 23:24] LABS: PH 5 (5-8); SQUAMOUS EPITHELIAL 0-2 /hpf; URINE APPEARANCE Hazy; URINE BACTERIA None Seen /hpf; URINE BILIRUBIN Negative (NEGATIVE); URINE BLOOD 2+ (NEGATIVE); URINE COLOR Yellow; URINE GLUCOSE Negative (NEGATIVE); URINE KETONE Negative (NEGATIVE); URINE UROBILINOGEN Negative (NEGATIVE)
[2016-06-17] VITALS (1015 sets, daily range): BP systolic 93–142; BP diastolic 51–67; PULSE 71–90; TEMP 97.2–99.9; O2SAT 58–100
[2016-06-17 00:18] LABS: VENOUS BLOOD GAS BE 3.2 (-4-4); VENOUS BLOOD GAS SAO2 51.6 % (60-80); VENOUS BLOOD GAS SITE CENTRAL LINE
[2016-06-17 00:36] LABS: ALLEN TEST NO; ARTERIAL BLD GAS O2 SATURATION 88.4 % (92-100); ARTERIAL BLD GAS TCO2 CT 33.1; ARTERIAL BLOOD GAS BASE EXCESS 4.7 (-2-2); ARTERIAL BLOOD GAS HCO3 31.4 meq/L (22-26); ARTERIAL BLOOD GAS PHT 7.36 C (7.35-7.45); ARTERIAL BLOOD GAS PO2 53.2 mmHg (80-100); ARTERIAL BLOOD GAS PO2T 53.2 (80-100); ARTERIAL BLOOD GAS pH 7.36 (7.35-7.45); ATS? YES; OXYHEMOGLOBIN 87.4 %
[2016-06-17 04:24] LABS: VENOUS BLOOD GAS SAO2 57.9 % (60-80)
[2016-06-17 04:25] LABS: VENOUS BLOOD GAS SITE CENTRAL LINE
[2016-06-17 04:33] LABS: MEAN CELL VOLUME 99 fl (80.0-100.0); MEAN CORPUSCULAR HGB CONC 30 g/dl (33.0-37.0); MEAN PLATELET VOLUME 10.3 fl (7.4-10.4); PLATELET COUNT 250 K/mm3 (130-400); RED BLOOD COUNT 3.37 M/mm3 (4.10-5.30); REDCELL DISTRIBUTION WIDTH-CV 15.1 % (11.5-14.5); WHITE BLOOD COUNT 11.8 K/mm3 (4.8-10.8)
[2016-06-17 04:39] LABS: INR 1.3 (0.8-3.0); PROTHROMBIN TIME 14.3 SECONDS (9.7-12.8)
[2016-06-17 04:44] LABS: ADJUSTED CALCIUM 9.7 mg/dL (8.4-10.2); ALBUMIN 2.7 gm/dL (3.5-5.0); BILIRUBIN,TOTAL 0.8 mg/dL (0.0-1.0); CALCIUM 8.7 mg/dL (8.4-10.2); CREATININE, serum 0.88 mg/dL (0.52-1.25); POTASSIUM 4.4 mmol/L (3.4-5.0); TOTAL PROTEIN 5.4 gm/dL (6.4-8.2)
[2016-06-17 05:00] LABS: ARTERIAL BLD GAS O2 SATURATION 95.4 % (92-100); ARTERIAL BLD GAS TCO2 CT 30.8; ARTERIAL BLOOD GAS BASE EXCESS 2.8 (-2-2); ARTERIAL BLOOD GAS HCO3 29.2 meq/L (22-26); ARTERIAL BLOOD GAS PHT 7.36 C (7.35-7.45); ARTERIAL BLOOD GAS PO2 76.9 mmHg (80-100); ARTERIAL BLOOD GAS PO2T 76.9 (80-100); ARTERIAL BLOOD GAS pH 7.36 (7.35-7.45); OXYHEMOGLOBIN 94.4 %
[2016-06-17 05:01] LABS: ALLEN TEST NO; ATS? YES
[2016-06-17 05:59] LABS: HEMATOCRIT 33.5 % (37.0-47.0); HEMOGLOBIN 10.1 g/dl (12.5-16.0); MEAN CORPUSCULAR HEMOGLOBIN 30 pg (27.0-31.0)
[2016-06-17 06:26] LABS: ADD PATHOLOGY DIFF REVIEW NO
[2016-06-17 06:28] LABS: BAND 16 % (0-10); NEUTROPHILS 80 % (42.0-75.2); TOTAL CELLS COUNTED 100
[2016-06-17 08:16] LABS: VENOUS BLOOD GAS BE 3.1 (-4-4); VENOUS BLOOD GAS SAO2 61.7 % (60-80)
[2016-06-17 08:17] LABS: VENOUS BLOOD GAS SITE CENTRAL LINE
[2016-06-17 12:10] LABS: VENOUS BLOOD GAS BE 3.6 (-4-4); VENOUS BLOOD GAS SAO2 67.6 % (60-80)
[2016-06-17 12:11] LABS: VENOUS BLOOD GAS SITE CENTRAL LINE
[2016-06-17 16:44] LABS: VENOUS BLOOD GAS BE 3.9 (-4-4); VENOUS BLOOD GAS SAO2 68.6 % (60-80); VENOUS BLOOD GAS SITE CENTRAL LINE
[2016-06-17 20:24] LABS: VENOUS BLOOD GAS BE 2.6 (-4-4); VENOUS BLOOD GAS SAO2 71.2 % (60-80)
[2016-06-17 20:25] LABS: VENOUS BLOOD GAS SITE CENTRAL LINE
[2016-06-18] VITALS (1012 sets, daily range): BP systolic 121–140; BP diastolic 54–109; PULSE 63–92; TEMP 97–99.2; O2SAT 64–100
[2016-06-18 00:03] LABS: VENOUS BLOOD GAS BE 0.5 (-4-4); VENOUS BLOOD GAS SAO2 77.4 % (60-80)
[2016-06-18 00:04] LABS: VENOUS BLOOD GAS SITE CENTRAL LINE
[2016-06-18 05:25] LABS: ARTERIAL BLD GAS O2 SATURATION 92.8 % (92-100); ARTERIAL BLD GAS TCO2 CT 30.4; ARTERIAL BLOOD GAS BASE EXCESS 2.9 (-2-2); ARTERIAL BLOOD GAS HCO3 28.9 meq/L (22-26); ARTERIAL BLOOD GAS PHT 7.37 C (7.35-7.45); ARTERIAL BLOOD GAS PO2 64.7 mmHg (80-100); ARTERIAL BLOOD GAS PO2T 64.7 (80-100); ARTERIAL BLOOD GAS pH 7.37 (7.35-7.45); OXYHEMOGLOBIN 92.2 %
[2016-06-18 05:28] LABS: ALLEN TEST YES; ALLENS TEST RESULT PASS; ATS? YES
[2016-06-18 05:39] LABS: MEAN CELL VOLUME 99 fl (80.0-100.0); MEAN CORPUSCULAR HGB CONC 30 g/dl (33.0-37.0); MEAN PLATELET VOLUME 10.2 fl (7.4-10.4); PLATELET COUNT 259 K/mm3 (130-400); RED BLOOD COUNT 3.06 M/mm3 (4.10-5.30); REDCELL DISTRIBUTION WIDTH-CV 15.6 % (11.5-14.5)
[2016-06-18 05:48] LABS: ADJUSTED CALCIUM 9.9 mg/dL (8.4-10.2); ALBUMIN 2.5 gm/dL (3.5-5.0); BILIRUBIN,TOTAL 0.7 mg/dL (0.0-1.0); CALCIUM 8.7 mg/dL (8.4-10.2); CREATININE, serum 0.82 mg/dL (0.52-1.25); POTASSIUM 4.2 mmol/L (3.4-5.0); TOTAL PROTEIN 5.1 gm/dL (6.4-8.2)
[2016-06-18 05:51] LABS: INR 1.2 (0.8-3.0); PROTHROMBIN TIME 13.5 SECONDS (9.7-12.8)
[2016-06-18 05:55] LABS: ADD PATHOLOGY DIFF REVIEW NO; HEMATOCRIT 30.2 % (37.0-47.0); HEMOGLOBIN 9.1 g/dl (12.5-16.0); MEAN CORPUSCULAR HEMOGLOBIN 30 pg (27.0-31.0)
[2016-06-18 06:28] LABS: BAND 26 % (0-10); NEUTROPHILS 69 % (42.0-75.2); TOTAL CELLS COUNTED 100
[2016-06-19] VITALS (549 sets, daily range): BP systolic 106–144; BP diastolic 49–86; PULSE 68–103; TEMP 97–98.1; O2SAT 72–100
[2016-06-19 05:30] LABS: MEAN CELL VOLUME 98 fl (80.0-100.0); MEAN CORPUSCULAR HGB CONC 30 g/dl (33.0-37.0); PLATELET COUNT 278 K/mm3 (130-400); RED BLOOD COUNT 3.21 M/mm3 (4.10-5.30); REDCELL DISTRIBUTION WIDTH-CV 15.6 % (11.5-14.5); WHITE BLOOD COUNT 13.2 K/mm3 (4.8-10.8)
[2016-06-19 05:35] LABS: HEMATOCRIT 31.4 % (37.0-47.0); HEMOGLOBIN 9.5 g/dl (12.5-16.0); MEAN CORPUSCULAR HEMOGLOBIN 30 pg (27.0-31.0)
[2016-06-19 05:36] LABS: ADD PATHOLOGY DIFF REVIEW NO
[2016-06-19 05:47] LABS: ALBUMIN 2.6 gm/dL (3.5-5.0); BILIRUBIN,TOTAL 0.6 mg/dL (0.0-1.0); CALCIUM 8.9 mg/dL (8.4-10.2); CREATININE, serum 0.83 mg/dL (0.52-1.25); POTASSIUM 3.9 mmol/L (3.4-5.0); TOTAL PROTEIN 5.2 gm/dL (6.4-8.2)
[2016-06-19 06:44] LABS: BAND 13 % (0-10); METAMYELOCYTE 1 % (0-0); NEUTROPHILS 84 % (42.0-75.2); PLATELET ESTIMATE NORMAL (NORMAL); TOTAL CELLS COUNTED 100
[2016-06-19 12:59] LABS: INR 1.1 (0.8-3.0); PROTHROMBIN TIME 12.7 SECONDS (9.7-12.8)
[2016-06-20 01:03] VITALS: BP 128/73; PULSE 74; TEMP 97.8
[2016-06-20 04:35] VITALS: BP 120/62; PULSE 69; TEMP 96.7
[2016-06-20 07:39] VITALS: BP 147/41; PULSE 70; TEMP 98.1
[2016-06-20] MEDS ORDERED: IPRATROPIUM BROM3 M1 IH ×2 (12:07)
[2016-06-20] MEDS ORDERED: CORDARONE200 MG/TAB PO (12:07)
[2016-06-20 12:35] VITALS: BP 111/48; PULSE 69; TEMP 97.9
[2016-06-20] MEDS ORDERED: MERREM IV1 GM IV (13:13)
[2016-06-20] MEDS ORDERED: VANCOMYCIN HYD750 MG IV (13:14)
[2016-06-20] MEDS ORDERED: LEVAQUIN 750MG750 M1 PO (13:15)
[2016-06-20] MEDS ORDERED: XARELTO10 MG PO (13:33)
== END 2016-06-20 15:30 | DRG 871 ==
LOC: COL.ER 15:36 → ICU 18:21 → MEDICAL 06-19 11:15
PROVIDERS: Emergency Medicine; Family Medicine; Internal Medicine
PROC: 02HV33Z Insertion of Infusion Device into Superior Vena Cava, Percutaneous Approach (ICD-10-PCS; principal; 2016-06-17)
DX: A41.9 Sepsis, unspecified organism (principal); J69.0 Pneumonitis due to inhalation of food and vomit; J18.9 Pneumonia, unspecified organism; J96.02 Acute respiratory failure with hypercapnia; J96.01 Acute respiratory failure with hypoxia; E44.1 Mild protein-calorie malnutrition; R65.20 Severe sepsis without septic shock; J44.9 Chronic obstructive pulmonary disease, unspecified; F03.90 Unspecified dementia, unspecified severity, without behavioral disturbance, psychotic disturbance, mood disturbance, and anxiety; E03.9 Hypothyroidism, unspecified; S72.92XD Unspecified fracture of left femur, subsequent encounter for closed fracture with routine healing; D64.9 Anemia, unspecified; I50.9 Heart failure, unspecified; Z88.0 Allergy status to penicillin; Z91.041 Radiographic dye allergy status; Z68.30 Body mass index [BMI] 30.0-30.9, adult
CPT/HCPCS: 99233-AI; 99239; A4315; C1751; C1894; C9113; J0456; J0696; J1630; J1644; J1720; J1956; J2060; J2185; J2270; J2930; J3370; J7030; J7050

== ENCOUNTER → 2016-06-16 | Outpatient (CLI) | payer MEDICARE, OTHER | LOC: COL.RAD 13:57 | DX: Z02.89 Encounter for other administrative examinations (principal) ==

== ENCOUNTER → 2016-06-25 | Outpatient (REF) ==
[~2016-06-25] MED LIST changes: +ALBUTEROL0.83 MG/ML IH; +AMOXICILLIN 8751 TAB PO; +ASPIRIN 81M81 MG/TA2 PO; +CORDARONE200 MG/TAB PO; +FOLIC ACID 11 MG/TA1 PO; +IPRATROPIUM BROM3 M1 IH; +IRON TABLETS325 MG PO; +LASIX 20MG TABL20 MG PO; +LEVAQUIN 7750 MG/151 IV; +MAALOX ADVANCE148 ML PO; +MERREM IV1 GM IV; +MERREM VIA500 MG/VIA IV; +MYSOLINE 5050 MG/TAB PO; +NORCO2.5 PO; +PULMICORT R1 MG/2 ML IH; +PULMICORT R1 MG/2 ML PO; +PULMICORT0.5 MG/2 M IH; +SINEMET 25/101 UDTAB PO; +SYNTHROID0.137 MG PO; +VANCOMYCIN HYD750 MG IV; +WELLBUTRIN 75MG75 MG PO
== END ==
LOC: ZAIV 06:10
DX: Z09 Encounter for follow-up examination after completed treatment for conditions other than malignant neoplasm (principal)

== ENCOUNTER 2016-06-26 09:37 | Emergency (ER) | payer MEDICARE, OTHER ==
[~2016-06-26] VITALS: Ht 157.5 cm; Wt 67.3 kg
[~2016-06-26 09:37] MED LIST changes: -ALBUTEROL0.83 MG/ML IH; -AMOXICILLIN 8751 TAB PO; -ASPIRIN 81M81 MG/TA2 PO; -FOLIC ACID 11 MG/TA1 PO; -IRON TABLETS325 MG PO; -LASIX 20MG TABL20 MG PO; -LEVAQUIN 7750 MG/151 IV; -MAALOX ADVANCE148 ML PO; -MERREM VIA500 MG/VIA IV; -MYSOLINE 5050 MG/TAB PO; -NORCO2.5 PO; -PULMICORT R1 MG/2 ML IH; -PULMICORT R1 MG/2 ML PO; -PULMICORT0.5 MG/2 M IH; -SINEMET 25/101 UDTAB PO; -SYNTHROID0.137 MG PO; -WELLBUTRIN 75MG75 MG PO
[2016-06-26 12:09] LABS: BASO % 0.3 % (0.0-2.0); EOS % 0.3 % (0-4.0); GRAN # 7.1 (1.4-6.5); GRAN % 78.2 % (42.2-75.2); LYMPH # 0.7 (1.2-3.4); LYMPH % 7.7 % (20.0-51.0); MEAN CELL VOLUME 103 fl (80.0-100.0); MEAN CORPUSCULAR HGB CONC 29 g/dl (33.0-37.0); MEAN PLATELET VOLUME 9.9 fl (7.4-10.4); MONO % 11.3 % (1.7-9.3); PLATELET COUNT 189 K/mm3 (130-400); RED BLOOD COUNT 3.12 M/mm3 (4.10-5.30); REDCELL DISTRIBUTION WIDTH-CV 16.7 % (11.5-14.5); WHITE BLOOD COUNT 9.1 K/mm3 (4.8-10.8)
[2016-06-26 12:14] LABS: ADJUSTED CALCIUM 9.9 mg/dL (8.4-10.2); ALBUMIN 2.5 gm/dL (3.5-5.0); BILIRUBIN,TOTAL 0.7 mg/dL (0.0-1.0); CALCIUM 8.7 mg/dL (8.4-10.2); CREATININE, serum 0.89 mg/dL (0.52-1.25); HEMOGLOBIN 9.4 g/dl (12.5-16.0); MEAN CORPUSCULAR HEMOGLOBIN 30 pg (27.0-31.0); POTASSIUM 4.2 mmol/L (3.4-5.0); TOTAL PROTEIN 5.2 gm/dL (6.4-8.2)
[2016-06-26 14:06] VITALS: BP 122/88; PULSE 88; TEMP 98.8
== END 2016-06-26 14:04 | disposition home or self-care (01) ==
LOC: COL.ER 09:37
PROVIDERS: Emergency Medicine
DX: J18.9 Pneumonia, unspecified organism (principal); I50.9 Heart failure, unspecified; N18.9 Chronic kidney disease, unspecified; J44.9 Chronic obstructive pulmonary disease, unspecified
CPT/HCPCS: C1751; J3370; J7050

== ENCOUNTER → 2016-06-26 | Outpatient (CLI) | payer MEDICARE, OTHER | LOC: COL.RAD 08:42 | DX: J69.0 Pneumonitis due to inhalation of food and vomit (principal); J90 Pleural effusion, not elsewhere classified; I51.7 Cardiomegaly ==

== ENCOUNTER 2016-06-28 23:41 | Emergency (ER) | payer MEDICARE, OTHER ==
[~2016-06-28] VITALS: Ht 152.4 cm; Wt 68.2 kg
[~2016-06-28 23:41] MED LIST changes: -ALBUTEROL0.83 MG/ML IH; -AMOXICILLIN 8751 TAB PO; -ASPIRIN 81M81 MG/TA2 PO; -FOLIC ACID 11 MG/TA1 PO; -IRON TABLETS325 MG PO; -LASIX 20MG TABL20 MG PO; -LEVAQUIN 7750 MG/151 IV; -MAALOX ADVANCE148 ML PO; -MERREM VIA500 MG/VIA IV; -MYSOLINE 5050 MG/TAB PO; -NORCO2.5 PO; -PULMICORT R1 MG/2 ML IH; -PULMICORT R1 MG/2 ML PO; -PULMICORT0.5 MG/2 M IH; -SINEMET 25/101 UDTAB PO; -SYNTHROID0.137 MG PO; -WELLBUTRIN 75MG75 MG PO
[2016-06-28 23:45] VITALS: BP 127/77; TEMP 97.6
[2016-06-29] MEDS ORDERED: XOPENEX 1.1.25 MG/3 IH (00:18)
[2016-06-29] MEDS ORDERED: NORCO 325 MG-51 TAB PO (00:21)
[2016-06-29] MEDS ORDERED: TYLENOL 325MG325 MG PO (00:23)
[2016-06-29] MEDS ORDERED: PULMICORT R1 MG/2 ML IH (00:25)
[2016-06-29 01:26] VITALS: PULSE 86
[2016-06-30] MEDS ORDERED: AMOXICILLIN 8751 TAB PO (12:17)
[2016-06-30] MEDS ORDERED: MERREM VIA500 MG/VIA IV (12:19)
[2016-06-30] MEDS ORDERED: LEVAQUIN 7750 MG/151 IV (12:21)
== END 2016-06-29 01:26 | disposition home or self-care (01) ==
LOC: COL.ER 23:41
DX: Z45.2 Encounter for adjustment and management of vascular access device (principal); J18.9 Pneumonia, unspecified organism; F03.90 Unspecified dementia, unspecified severity, without behavioral disturbance, psychotic disturbance, mood disturbance, and anxiety

== ENCOUNTER → 2016-06-28 | Outpatient (REF) ==
[~2016-06-28] MED LIST changes: +ALBUTEROL0.83 MG/ML IH; +AMOXICILLIN 8751 TAB PO; +ASPIRIN 81M81 MG/TA2 PO; +FOLIC ACID 11 MG/TA1 PO; +IRON TABLETS325 MG PO; +LASIX 20MG TABL20 MG PO; +LEVAQUIN 7750 MG/151 IV; +MAALOX ADVANCE148 ML PO; +MERREM VIA500 MG/VIA IV; +MYSOLINE 5050 MG/TAB PO; +NORCO2.5 PO; +PULMICORT R1 MG/2 ML IH; +PULMICORT R1 MG/2 ML PO; +PULMICORT0.5 MG/2 M IH; +SINEMET 25/101 UDTAB PO; +SYNTHROID0.137 MG PO; +WELLBUTRIN 75MG75 MG PO
== END ==
LOC: ZLAB.STJ 18:41
DX: Z01.89 Encounter for other specified special examinations (principal)

== ENCOUNTER → 2016-06-28 | Outpatient (REF) | LOC: ZLAB.STJ 18:11 | DX: Z53.8 Procedure and treatment not carried out for other reasons (principal) ==

== ENCOUNTER 2016-06-30 11:20 | Outpatient (CLI) | payer MEDICARE, OTHER ==
[~2016-06-30 11:20] MED LIST changes: +PULMICORT R1 MG/2 ML IH
[2016-06-30 11:45] VITALS: BP 114/83; PULSE 70; TEMP 97.8
[2016-06-30] MEDS ORDERED: AMOXICILLIN 8751 TAB PO (12:17)
[2016-06-30] MEDS ORDERED: MERREM VIA500 MG/VIA IV (12:19)
[2016-06-30] MEDS ORDERED: LEVAQUIN 7750 MG/151 IV (12:21)
== END 2016-06-30 16:52 | disposition home or self-care (01) ==
LOC: EUO 11:20
DX: Z45.2 Encounter for adjustment and management of vascular access device (principal); I51.7 Cardiomegaly; J90 Pleural effusion, not elsewhere classified
CPT/HCPCS: C1751

== ENCOUNTER → 2016-07-14 | Outpatient (REF) ==
[~2016-07-14] MED LIST changes: +ALBUTEROL0.83 MG/ML IH; +AMOXICILLIN 8751 TAB PO; +ASPIRIN 81M81 MG/TA2 PO; +FOLIC ACID 11 MG/TA1 PO; +IRON TABLETS325 MG PO; +LASIX 20MG TABL20 MG PO; +LEVAQUIN 7750 MG/151 IV; +MAALOX ADVANCE148 ML PO; +MERREM VIA500 MG/VIA IV; +MYSOLINE 5050 MG/TAB PO; +NORCO2.5 PO; +PULMICORT R1 MG/2 ML PO; +PULMICORT0.5 MG/2 M IH; +SINEMET 25/101 UDTAB PO; +SYNTHROID0.137 MG PO; +WELLBUTRIN 75MG75 MG PO
[2016-07-14 15:21] LABS: MEAN CELL VOLUME 100 fl (80.0-100.0); MEAN CORPUSCULAR HGB CONC 30 g/dl (33.0-37.0); MEAN PLATELET VOLUME 9.6 fl (7.4-10.4); PLATELET COUNT 267 K/mm3 (130-400); RED BLOOD COUNT 3.13 M/mm3 (4.10-5.30); REDCELL DISTRIBUTION WIDTH-CV 16.2 % (11.5-14.5); WHITE BLOOD COUNT 6.7 K/mm3 (4.8-10.8)
[2016-07-14 15:25] LABS: PH 7 (5-8); SQUAMOUS EPITHELIAL 0-2 /hpf; URINE APPEARANCE Clear; URINE BACTERIA None Seen /hpf; URINE BILIRUBIN Negative (NEGATIVE); URINE BLOOD Negative (NEGATIVE); URINE COLOR Straw; URINE GLUCOSE Negative (NEGATIVE); URINE KETONE Negative (NEGATIVE); URINE RBC 0-2 /hpf; URINE UROBILINOGEN Negative (NEGATIVE); URINE WBC 0-2 /hpf
[2016-07-14 15:27] LABS: ADJUSTED CALCIUM 10.1 mg/dL (8.4-10.2); ALBUMIN 2.5 gm/dL (3.5-5.0); BILIRUBIN,TOTAL 0.3 mg/dL (0.0-1.0); CALCIUM 8.9 mg/dL (8.4-10.2); CREATININE, serum 0.98 mg/dL (0.52-1.25); POTASSIUM 4.2 mmol/L (3.4-5.0); TOTAL PROTEIN 4.9 gm/dL (6.4-8.2)
[2016-07-14 15:30] LABS: HEMATOCRIT 31.3 % (37.0-47.0); HEMOGLOBIN 9.5 g/dl (12.5-16.0); MEAN CORPUSCULAR HEMOGLOBIN 30 pg (27.0-31.0)
[2016-07-14 15:31] LABS: ADD PATHOLOGY DIFF REVIEW NO
[2016-07-14 15:47] LABS: BAND 6 % (0-10); EOSINOPHIL 1 % (0-4); METAMYELOCYTE 3 % (0-0); NEUTROPHILS 66 % (42.0-75.2); PLATELET ESTIMATE NORMAL (NORMAL); POLYCHROMASIA 1+; TOTAL CELLS COUNTED 100
[2016-07-15 23:12] LABS: HOURS RANDOM Hr (()); VOLUME RANDOM mL (())
[2016-07-18 09:53] LABS: ALBUMIN FRACTION 2.5 g/dL (2.6-4.5); ALBUMIN PERCENTAGE 51.6 % (48.7-61.8); ALPHA 1 FRACTION 0.4 g/dL (0.3-0.5); ALPHA 1 PERCENTAGE 8.7 % (3.4-8.3); ALPHA 2 FRACTION 0.8 g/dL (0.6-1.2); ALPHA 2 PERCENTAGE 16.3 % (8.4-17.5); BETA 1 FRACTION 0.2 g/dL (0.4-0.6); BETA 1 PERCENTAGE 5.1 % (5.4-8.9); BETA 2 FRACTION 0.2 g/dL (0.2-0.5); BETA 2 PERCENTAGE 5.1 % (3.8-7.7); GAMMA FRACTION 0.6 g/dL (0.4-1.7); GAMMA PERCENTAGE 13.2 % (8.1-23.0); SERUM PROTEIN TOTAL 4.8 g/dL (6.0-7.6); URINE ALPHA 1 % 22.6 % (()); URINE ALPHA 2 % 9.5 % (()); URINE BETA % 14.7 % (()); URINE GAMMA % 20.9 % (())
== END ==
LOC: ZLAB.STJ 15:15
PROVIDERS: Family Medicine; Psychiatry & Neurology Neurology
DX: Z01.89 Encounter for other specified special examinations (principal)

== ENCOUNTER → 2016-07-16 | Outpatient (CLI) | payer MEDICARE, OTHER | LOC: COL.RAD 15:38 | DX: S42.495D Other nondisplaced fracture of lower end of left humerus, subsequent encounter for fracture with routine healing (principal); S72.092D Other fracture of head and neck of left femur, subsequent encounter for closed fracture with routine healing; X58.XXXD Exposure to other specified factors, subsequent encounter ==

== ENCOUNTER → 2016-07-28 | Outpatient (CLI) | payer MEDICARE, OTHER | LOC: COL.RAD 11:00 | DX: K22.8 Other specified diseases of esophagus (principal); J39.2 Other diseases of pharynx; R13.19 Other dysphagia ==

== ENCOUNTER 2016-08-17 10:44 | Inpatient (IN) | payer MEDICARE, OTHER ==
[~2016-08-17] VITALS: Ht 162.6 cm; Wt 55.4 kg
[2016-08-17] VITALS (592 sets, daily range): BP systolic 91–136; BP diastolic 41–107; PULSE 60–77; TEMP 96.4–98.3; O2SAT 67–100
[~2016-08-17 10:44] MED LIST changes: -ALBUTEROL0.83 MG/ML IH; -ASPIRIN 81M81 MG/TA2 PO; -FOLIC ACID 11 MG/TA1 PO; -IRON TABLETS325 MG PO; -LASIX 20MG TABL20 MG PO; -MAALOX ADVANCE148 ML PO; -MYSOLINE 5050 MG/TAB PO; -NORCO2.5 PO; -PULMICORT R1 MG/2 ML PO; -PULMICORT0.5 MG/2 M IH; -SINEMET 25/101 UDTAB PO; -SYNTHROID0.137 MG PO; -WELLBUTRIN 75MG75 MG PO
[2016-08-17] MEDS ORDERED: PULMICORT R1 MG/2 ML PO (11:03)
[2016-08-17] MEDS ORDERED: WELLBUTRIN 75MG75 MG PO (11:04)
[2016-08-17] MEDS ORDERED: LASIX 20MG TABL20 MG PO (11:04)
[2016-08-17 11:08] LABS: HEMATOCRIT 37.4 % (37.0-47.0); MEAN CELL VOLUME 103 fl (80.0-100.0); MEAN CORPUSCULAR HEMOGLOBIN 30 pg (27.0-31.0); MEAN CORPUSCULAR HGB CONC 30 g/dl (33.0-37.0); MEAN PLATELET VOLUME 11.4 fl (7.4-10.4); PLATELET COUNT 252 K/mm3 (130-400); RED BLOOD COUNT 3.65 M/mm3 (4.10-5.30); REDCELL DISTRIBUTION WIDTH-CV 14.3 % (11.5-14.5); WHITE BLOOD COUNT 14.9 K/mm3 (4.8-10.8)
[2016-08-17] MEDS ORDERED: SEROQUEL 2525 MG/TAB PO (11:10)
[2016-08-17 11:12] LABS: INR 1.3 (0.8-3.0)
[2016-08-17 11:14] LABS: PARTIAL THROMBOPLASTIN TIME 31.7 SECONDS (26.0-37.0)
[2016-08-17 11:16] LABS: ADD PATHOLOGY DIFF REVIEW NO; HEMOGLOBIN 11.1 g/dl (12.5-16.0)
[2016-08-17 11:19] LABS: ADJUSTED CALCIUM 9.7 mg/dL (8.4-10.2); ALANINE AMINOTRANSFERASE 23 U/L (9-52); ALBUMIN 3.3 gm/dL (3.5-5.0); ALKALINE PHOSPHATASE 131 U/L (50-136); ANION GAP 13 mmol/L (7-16); BILIRUBIN,TOTAL 0.6 mg/dL (0.0-1.0); BLOOD UREA NITROGEN 22 mg/dL (7-17); CALCIUM 9.1 mg/dL (8.4-10.2); CARBON DIOXIDE 30 mmol/L (22-30); CHLORIDE 101 mmol/L (98-107); CREATININE, serum 1.58 mg/dL (0.52-1.25); GLUCOSE 196 mg/dL (74-106); LIPASE 61 U/L (23-300); SODIUM 143 mmol/L (137-145); TOTAL PROTEIN 6.1 gm/dL (6.4-8.2)
[2016-08-17 11:21] LABS: CREATINE KINASE < 20 U/L (30-135)
[2016-08-17 11:31] LABS: B-TYPE NATRIURETIC PEPTIDE 454 pg/mL (0-450)
[2016-08-17 11:33] LABS: TROPONIN-I < 0.012 ng/mL (0.000-0.034)
[2016-08-17 11:38] LABS: ANISOCYTOSIS 1+; BAND 5 % (0-10); EOSINOPHIL 1 % (0-4); NEUTROPHILS 39 % (42.0-75.2); PLATELET ESTIMATE NORMAL (NORMAL); TOTAL CELLS COUNTED 100
[2016-08-17] MEDS ORDERED: PULMICORT R1 MG/2 ML IH (12:17)
[2016-08-18] VITALS (1118 sets, daily range): BP systolic 84–103; BP diastolic 49–60; PULSE 60–73; TEMP 97–98.2; O2SAT 69–100
[2016-08-18 05:56] LABS: ADD PATHOLOGY DIFF REVIEW NO
[2016-08-18 06:02] LABS: MEAN CELL VOLUME 101 fl (80.0-100.0); MEAN CORPUSCULAR HGB CONC 30 g/dl (33.0-37.0); PLATELET COUNT 205 K/mm3 (130-400); RED BLOOD COUNT 3.24 M/mm3 (4.10-5.30); REDCELL DISTRIBUTION WIDTH-CV 13.7 % (11.5-14.5); WHITE BLOOD COUNT 12.7 K/mm3 (4.8-10.8)
[2016-08-18 06:05] LABS: INR 1.1 (0.8-3.0); PROTHROMBIN TIME 12.2 SECONDS (9.7-12.8)
[2016-08-18 06:06] LABS: HEMATOCRIT 32.7 % (37.0-47.0); HEMOGLOBIN 9.9 g/dl (12.5-16.0); MEAN CORPUSCULAR HEMOGLOBIN 31 pg (27.0-31.0)
[2016-08-18 06:09] LABS: BAND 24 % (0-10); NEUTROPHILS 74 % (42.0-75.2); PLATELET ESTIMATE NORMAL (NORMAL); TOTAL CELLS COUNTED 100
[2016-08-18 06:11] LABS: CALCIUM 8.6 mg/dL (8.4-10.2); CREATININE, serum 1.2 mg/dL (0.52-1.25); MAGNESIUM 2.1 mg/dL (1.6-2.3); POTASSIUM 4.1 mmol/L (3.4-5.0)
[2016-08-18 06:27] LABS: TROPONIN-I 0.052 ng/mL (0.000-0.034)
[2016-08-19] VITALS (929 sets, daily range): BP systolic 99–129; BP diastolic 56–78; PULSE 60–77; TEMP 97–98.3; O2SAT 80–100
[2016-08-19 07:12] LABS: VENOUS BLOOD GAS BE -0.8 (-4-4); VENOUS BLOOD GAS SAO2 51.2 % (60-80)
[2016-08-19 07:14] LABS: VENOUS BLOOD GAS SITE VENIPUNCTURE
[2016-08-19 12:57] LABS: ARTERIAL BLD GAS O2 SATURATION 79.5 % (92-100); ARTERIAL BLD GAS TCO2 CT 28.8; ARTERIAL BLOOD GAS BASE EXCESS 0.3 (-2-2); ARTERIAL BLOOD GAS HCO3 27.1 meq/L (22-26); ARTERIAL BLOOD GAS pH 7.32 (7.35-7.45); OXYHEMOGLOBIN 78.9 %
[2016-08-19 13:02] LABS: ARTERIAL BLOOD GAS PO2 37.8 mmHg (80-100); ATS? YES
[2016-08-19 18:51] LABS: ARTERIAL BLD GAS O2 SATURATION 96.4 % (92-100); ARTERIAL BLD GAS TCO2 CT 28.9; ARTERIAL BLOOD GAS BASE EXCESS 0.2 (-2-2); ARTERIAL BLOOD GAS HCO3 27.2 meq/L (22-26); ARTERIAL BLOOD GAS PO2 91.6 mmHg (80-100); ARTERIAL BLOOD GAS pH 7.31 (7.35-7.45); OXYHEMOGLOBIN 95.5 %
[2016-08-19 18:52] LABS: ABG VENTILATOR TIDAL VOLUME 318 mL; ALLEN TEST YES; ALLENS TEST RESULT PASS; ATS? YES
[2016-08-20 03:42] VITALS: BP 107/59; PULSE 82; TEMP 97.6
[2016-08-20 07:50] LABS: BASO % 0.1 % (0.0-2.0); GRAN # 7.1 (1.4-6.5); GRAN % 92.2 % (42.2-75.2); LYMPH # 0.4 (1.2-3.4); LYMPH % 4.8 % (20.0-51.0); MEAN CELL VOLUME 100 fl (80.0-100.0); MEAN CORPUSCULAR HGB CONC 30 g/dl (33.0-37.0); MEAN PLATELET VOLUME 10.4 fl (7.4-10.4); MONO # 0.1 (0.1-0.6); MONO % 1.7 % (1.7-9.3); PLATELET COUNT 182 K/mm3 (130-400); RED BLOOD COUNT 3.18 M/mm3 (4.10-5.30); REDCELL DISTRIBUTION WIDTH-CV 13.8 % (11.5-14.5); WHITE BLOOD COUNT 7.7 K/mm3 (4.8-10.8)
[2016-08-20 08:07] LABS: CALCIUM 9.1 mg/dL (8.4-10.2); CREATININE, serum 1.1 mg/dL (0.52-1.25); POTASSIUM 3.7 mmol/L (3.4-5.0)
[2016-08-20 08:09] LABS: HEMATOCRIT 31.7 % (37.0-47.0); HEMOGLOBIN 9.6 g/dl (12.5-16.0); MEAN CORPUSCULAR HEMOGLOBIN 30 pg (27.0-31.0)
[2016-08-20 08:12] VITALS: BP 108/60; PULSE 72; TEMP 97.7
[2016-08-20 11:40] VITALS: BP 106/54; PULSE 66; TEMP 97.8
[2016-08-20 16:40] VITALS: BP 106/56; PULSE 66; TEMP 97.8
[2016-08-20 19:11] VITALS: BP 125/51; PULSE 78; TEMP 98.6
[2016-08-21 00:41] VITALS: BP 86/51; PULSE 72; TEMP 98
[2016-08-21 05:45] VITALS: BP 126/70; PULSE 65
[2016-08-21 11:29] VITALS: BP 95/61; PULSE 66; TEMP 97.1
[2016-08-21] MEDS ORDERED: PREDNISONE20 MG PO (11:58)
[2016-08-21] MEDS ORDERED: XARELTO10 MG PO (12:35)
== END 2016-08-21 14:04 | disposition home health service (06) | DRG 242 ==
LOC: COL.ER 10:44 → ICU 11:11 → MEDICAL 08-19 19:20
PROVIDERS: Emergency Medicine; Internal Medicine; Internal Medicine Interventional Cardiology; Internal Medicine Pulmonary Disease
PROC: 5A1223Z Performance of Cardiac Pacing, Continuous (ICD-10-PCS; 2016-08-17)
PROC: 0JH604Z Insertion of Pacemaker, Single Chamber into Chest Subcutaneous Tissue and Fascia, Open Approach (ICD-10-PCS; principal; 2016-08-18)
PROC: 02HK3JZ Insertion of Pacemaker Lead into Right Ventricle, Percutaneous Approach (ICD-10-PCS; 2016-08-18)
DX: I44.2 Atrioventricular block, complete (principal); I21.4 Non-ST elevation (NSTEMI) myocardial infarction; J96.22 Acute and chronic respiratory failure with hypercapnia; N17.9 Acute kidney failure, unspecified; F03.91 Unspecified dementia, unspecified severity, with behavioral disturbance; F05 Delirium due to known physiological condition; E44.0 Moderate protein-calorie malnutrition; E87.2 Acidosis; J44.9 Chronic obstructive pulmonary disease, unspecified; I48.91 Unspecified atrial fibrillation; Z79.01 Long term (current) use of anticoagulants; Z87.891 Personal history of nicotine dependence
CPT/HCPCS: 99223-AI; 99232-AI; 99233-AI; 99239; A4315; C1786; C1894; C1898; J0456; J0696; J1940; J2060; J2250; J2920; J3370; J7030; J7050; J7512

== ENCOUNTER 2016-08-26 14:35 | Emergency (ER) | payer MEDICARE, OTHER ==
[~2016-08-26] VITALS: Ht 162.6 cm; Wt 56.4 kg
[~2016-08-26 14:35] MED LIST changes: +LASIX 20MG TABL20 MG PO; +PULMICORT R1 MG/2 ML PO; +WELLBUTRIN 75MG75 MG PO
[2016-08-26 14:42] VITALS: TEMP 99
[2016-08-26 15:14] LABS: BASO % 0.1 % (0.0-2.0); GRAN % 84.8 % (42.2-75.2); LYMPH # 0.6 (1.2-3.4); LYMPH % 7.6 % (20.0-51.0); MEAN CELL VOLUME 99 fl (80.0-100.0); MEAN CORPUSCULAR HGB CONC 31 g/dl (33.0-37.0); MONO # 0.4 (0.1-0.6); MONO % 4.7 % (1.7-9.3); PLATELET COUNT 199 K/mm3 (130-400); RED BLOOD COUNT 3.62 M/mm3 (4.10-5.30); REDCELL DISTRIBUTION WIDTH-CV 13.7 % (11.5-14.5); WHITE BLOOD COUNT 8.3 K/mm3 (4.8-10.8)
[2016-08-26 15:19] LABS: HEMATOCRIT 35.7 % (37.0-47.0); HEMOGLOBIN 10.9 g/dl (12.5-16.0); MEAN CORPUSCULAR HEMOGLOBIN 30 pg (27.0-31.0)
[2016-08-26 15:28] LABS: ADJUSTED CALCIUM 9.7 mg/dL (8.4-10.2); ALBUMIN 3.2 gm/dL (3.5-5.0); BILIRUBIN,TOTAL 0.5 mg/dL (0.0-1.0); CALCIUM 9.1 mg/dL (8.4-10.2); CREATININE, serum 1.17 mg/dL (0.52-1.25); POTASSIUM 3.5 mmol/L (3.4-5.0); TOTAL PROTEIN 5.7 gm/dL (6.4-8.2)
[2016-08-26 16:19] VITALS: BP 119/77; PULSE 62
== END 2016-08-26 16:19 | disposition home or self-care (01) ==
LOC: COL.ER 14:35
PROVIDERS: Family Medicine
DX: I95.1 Orthostatic hypotension (principal); Z95.0 Presence of cardiac pacemaker; F32.9 Major depressive disorder, single episode, unspecified; I47.1 Supraventricular tachycardia
CPT/HCPCS: J7040

== ENCOUNTER 2016-09-10 00:27 | Emergency (ER) | payer MEDICARE, OTHER ==
[~2016-09-10] VITALS: Ht 157.5 cm; Wt 56.4 kg
[2016-09-10 00:29] VITALS: TEMP 98.2
[2016-09-10 00:46] VITALS: BP 107/74; PULSE 70
[2016-09-10] MEDS ORDERED: NORCO 325 MG-51 TAB PO (01:54)
== END 2016-09-10 02:28 | disposition home or self-care (01) ==
LOC: COL.ER 00:27
DX: S20.212A Contusion of left front wall of thorax, initial encounter (principal); W01.198A Fall on same level from slipping, tripping and stumbling with subsequent striking against other object, initial encounter; Y92.009 Unspecified place in unspecified non-institutional (private) residence as the place of occurrence of the external cause; R93.7 Abnormal findings on diagnostic imaging of other parts of musculoskeletal system; Z95.0 Presence of cardiac pacemaker; F03.90 Unspecified dementia, unspecified severity, without behavioral disturbance, psychotic disturbance, mood disturbance, and anxiety

== ENCOUNTER 2016-10-02 13:38 | Day surgery (SDC) | payer MEDICARE, OTHER ==
[~2016-10-02] VITALS: Ht 157.5 cm; Wt 56.4 kg
[2016-10-02] MEDS ORDERED: MAALOX ADVANCE148 ML PO (14:32)
[2016-10-02 14:43] VITALS: BP 107/80; PULSE 70; TEMP 98
[2016-10-02 15:15] VITALS: BP 116/74; PULSE 66
[2016-10-02 15:30] VITALS: BP 126/70; PULSE 66
[2016-10-02 15:50] VITALS: BP 115/79; PULSE 75
== END 2016-10-02 16:00 | disposition home or self-care (01) ==
LOC: SDCO 13:38
DX: R13.10 Dysphagia, unspecified (principal); F03.90 Unspecified dementia, unspecified severity, without behavioral disturbance, psychotic disturbance, mood disturbance, and anxiety; J44.9 Chronic obstructive pulmonary disease, unspecified; I50.9 Heart failure, unspecified; E03.9 Hypothyroidism, unspecified; I25.2 Old myocardial infarction; N18.3 Chronic kidney disease, stage 3 (moderate); J96.12 Chronic respiratory failure with hypercapnia; R56.9 Unspecified convulsions; Z95.0 Presence of cardiac pacemaker; Z86.73 Personal history of transient ischemic attack (TIA), and cerebral infarction without residual deficits
CPT/HCPCS: J2704; J7030

== ENCOUNTER 2016-10-10 10:45 | Outpatient (RCR) | payer MEDICARE, OTHER ==
[~2016-10-10 10:45] MED LIST changes: +MAALOX ADVANCE148 ML PO
== END 2016-10-22 10:34 | disposition still patient (30) ==
LOC: WSPT 10:45
DX: S22.42XD Multiple fractures of ribs, left side, subsequent encounter for fracture with routine healing (principal); S81.801S Unspecified open wound, right lower leg, sequela; R53.1 Weakness; Z95.0 Presence of cardiac pacemaker; Z77.22 Contact with and (suspected) exposure to environmental tobacco smoke (acute) (chronic)
CPT/HCPCS: G8978-GP; G8979-GP

== ENCOUNTER 2017-01-10 04:48 | Observation (INO) | payer MEDICARE, OTHER ==
[~2017-01-10] VITALS: Ht 152.4 cm; Wt 59.2 kg
[2017-01-10 06:07] LABS: BASO # 0.1 (0.0-0.2); BASO % 1.1 % (0.0-2.0); EOS # 0.5 (0.0-0.7); GRAN # 3.8 (1.4-6.5); GRAN % 58.8 % (42.2-75.2); LYMPH # 1.3 (1.2-3.4); LYMPH % 19.5 % (20.0-51.0); MEAN CELL VOLUME 99 fl (80.0-100.0); MEAN CORPUSCULAR HGB CONC 30 g/dl (33.0-37.0); MEAN PLATELET VOLUME 9.6 fl (7.4-10.4); MONO # 0.8 (0.1-0.6); MONO % 11.7 % (1.7-9.3); PLATELET COUNT 177 K/mm3 (130-400); RED BLOOD COUNT 3.12 M/mm3 (4.10-5.30); WHITE BLOOD COUNT 6.5 K/mm3 (4.8-10.8)
[2017-01-10 06:09] LABS: HEMATOCRIT 30.9 % (37.0-47.0); HEMOGLOBIN 9.3 g/dl (12.5-16.0); MEAN CORPUSCULAR HEMOGLOBIN 30 pg (27.0-31.0)
[2017-01-10 06:20] LABS: ADJUSTED CALCIUM 9.7 mg/dL (8.4-10.2); ALANINE AMINOTRANSFERASE 21 U/L (9-52); ALBUMIN 3.4 gm/dL (3.5-5.0); ALKALINE PHOSPHATASE 75 U/L (50-136); ANION GAP 4 mmol/L (7-16); BILIRUBIN,TOTAL 0.3 mg/dL (0.0-1.0); BLOOD UREA NITROGEN 21 mg/dL (7-17); CALCIUM 9.2 mg/dL (8.4-10.2); CARBON DIOXIDE 37 mmol/L (22-30); CHLORIDE 101 mmol/L (98-107); CREATININE, serum 1.01 mg/dL (0.52-1.25); GLUCOSE 84 mg/dL (74-106); POTASSIUM 4.6 mmol/L (3.4-5.0); SODIUM 141 mmol/L (137-145); TOTAL PROTEIN 6.2 gm/dL (6.4-8.2)
[2017-01-10 06:22] LABS: C-REACTIVE PROTEIN < 0.5 mg/dL (0.0-0.9)
[2017-01-10 06:25] LABS: PH 7 (5-8); SQUAMOUS EPITHELIAL 0-2 /hpf; URINE APPEARANCE Hazy; URINE BACTERIA None Seen /hpf; URINE BILIRUBIN Negative (NEGATIVE); URINE BLOOD 1+ (NEGATIVE); URINE COLOR Yellow; URINE GLUCOSE Negative (NEGATIVE); URINE KETONE Negative (NEGATIVE); URINE RBC 0-2 /hpf; URINE UROBILINOGEN Negative (NEGATIVE)
[2017-01-10] MEDS ORDERED: TYLENOL 325MG325 MG PO (11:39)
[2017-01-10] MEDS ORDERED: ASPIRIN 81M81 MG/TA2 PO (11:40)
[2017-01-10] MEDS ORDERED: ALBUTEROL0.83 MG/ML IH (11:40)
[2017-01-10] MEDS ORDERED: PULMICORT0.5 MG/2 M IH (11:41)
[2017-01-10] MEDS ORDERED: SINEMET 25/101 UDTAB PO (11:42)
[2017-01-10] MEDS ORDERED: IRON TABLETS325 MG PO (11:43)
[2017-01-10] MEDS ORDERED: LASIX 20MG TABL20 MG PO (11:44)
[2017-01-10] MEDS ORDERED: FOLIC ACID 11 MG/TA1 PO (11:44)
[2017-01-10] MEDS ORDERED: MYSOLINE 5050 MG/TAB PO (11:45)
[2017-01-10 12:28] VITALS: BP 110/79; PULSE 78; TEMP 97.5
[2017-01-10 12:32] VITALS: BP 110/79; PULSE 78; TEMP 97.5
[2017-01-10 13:40] LABS: THYROID STIMULATING HORMONE 13.3 uIU/mL (0.465-4.680)
[2017-01-10 15:47] VITALS: BP 136/77; PULSE 76; TEMP 98.2
[2017-01-10 19:45] VITALS: BP 118/64; PULSE 82; TEMP 98.3
[2017-01-10 23:12] VITALS: BP 112/61; PULSE 77; TEMP 98.1
[2017-01-11 03:59] VITALS: BP 119/55; PULSE 77; TEMP 97.6
[2017-01-11 07:48] VITALS: BP 110/57; PULSE 95; TEMP 99.9
[2017-01-11 12:06] VITALS: BP 107/61; PULSE 77; TEMP 100.6
[2017-01-11 15:29] VITALS: BP 96/50; PULSE 81; TEMP 98.7
[2017-01-11 19:46] VITALS: BP 96/57; PULSE 75; TEMP 98.6
[2017-01-11 23:56] VITALS: BP 127/68; PULSE 71; TEMP 98.6
[2017-01-12 04:09] VITALS: BP 121/44; PULSE 72; TEMP 98.4
[2017-01-12 07:31] VITALS: BP 121/59; PULSE 80; TEMP 98.5
[2017-01-12] MEDS ORDERED: SYNTHROID0.137 MG PO (09:48)
[2017-01-12] MEDS ORDERED: ULTRAM 50MG TAB50 MG PO (10:53)
[2017-01-12] MEDS ORDERED: NORCO2.5 PO (11:11)
== END 2017-01-12 11:45 | disposition home or self-care (01) ==
LOC: COL.ER 04:48 → MEDICAL 09:36
PROVIDERS: Emergency Medicine; Internal Medicine
DX: R10.31 Right lower quadrant pain (principal); W18.30XA Fall on same level, unspecified, initial encounter; Z91.81 History of falling; J44.9 Chronic obstructive pulmonary disease, unspecified; G20 Parkinson's disease; F02.80 Dementia in other diseases classified elsewhere, unspecified severity, without behavioral disturbance, psychotic disturbance, mood disturbance, and anxiety; R26.9 Unspecified abnormalities of gait and mobility; J96.91 Respiratory failure, unspecified with hypoxia; Z95.0 Presence of cardiac pacemaker; I35.8 Other nonrheumatic aortic valve disorders; I48.91 Unspecified atrial fibrillation; E03.9 Hypothyroidism, unspecified; N18.9 Chronic kidney disease, unspecified; D64.9 Anemia, unspecified; Z99.81 Dependence on supplemental oxygen; I50.9 Heart failure, unspecified; Z87.891 Personal history of nicotine dependence
CPT/HCPCS: G0378; G8978-GP; G8979-GP; J1650; J1885; J2270; J2405